=== PATIENT | male | born 1985 | race Caucasian/White ===

== ENCOUNTER 2017-02-22 01:10 | Emergency (ER) | payer SELFPAY ==
--- NOTE | 2017-02-22 02:39 | C.PDOC ---
Time Seen by Provider: 02/22/17 01:34 Chief Complaint (Nursing): Back Pain Past Medical History Vital Signs: Last Vital Signs Temp 98.3 F 02/22/17 01:21 Pulse 95 H 02/22/17 01:21 Resp 18 02/22/17 01:21 BP 160/102 H 02/22/17 01:21 Pulse Ox 96 02/22/17 01:21 - Social History Hx Alcohol Use: No Hx Substance Use: No - Immunization History Hx Tetanus Toxoid Vaccination: No Hx Influenza Vaccination: No Hx Pneumococcal Vaccination: No ED Course And Treatment ECG: Interpreted By Me, Viewed By Me ECG Rhythm: Sinus Rhythm (69), Nonspecific Changes O2 Sat by Pulse Oximetry: 96 Pulse Ox Interpretation: Normal
[2017-02-22 02:54] LABS: BASO # 0.1 K/uL (0.0-0.2); BASO % 0.8 % (0.0-2.0); EOS # 0.3 K/uL (0.0-0.7); EOS % 4.3 % (0.0-4.0); HEMATOCRIT 46.2 % (35.0-51.0); LYMPH # 2.4 K/uL (1.0-4.3); LYMPH % 32.2 % (20.0-40.0); MEAN CELL VOLUME 79.3 fL (80.0-94.0); MEAN CORPUSCULAR HEMOGLOBIN 26.5 pg (27.0-31.0); MEAN CORPUSCULAR HGB CONC 33.5 g/dL (33.0-37.0); MEAN PLATELET VOLUME 8.9 fL (7.2-11.7); MONO # 0.5 K/uL (0.0-0.8); MONO % 7.2 % (0.0-10.0); RED CELL DISTRIBUTION WIDTH 14.4 % (11.5-14.5); WHITE BLOOD COUNT 7.5 K/uL (4.8-10.8)
[2017-02-22 02:59] LABS: CHLORIDE 99 mmol/L (98-107); SODIUM 141 mmol/L (132-148)
[2017-02-22 03:01] LABS: GFR AFRICAN-AMERICAN > 60
[2017-02-22 03:02] LABS: ALB/GLOB RATIO 1.4 (1.0-2.1); ALKALINE PHOSPHATASE 72 U/L (38-126); ALT/SGPT 20 U/L (21-72); AST/SGOT 26 U/L (17-59); BILIRUBIN,TOTAL 0.8 mg/dL (0.2-1.3); BLOOD UREA NITROGEN 9 mg/dL (9-20); CARBON DIOXIDE 34 mmol/L (22-30); GLUCOSE,RANDOM 81 mg/dL (75-110); TOTAL PROTEIN 7.8 g/dL (6.3-8.3)
[2017-02-22 03:03] LABS: ALCOHOL SERUM < 10 mg/dl (0-10); CALCIUM 9.4 mg/dl (8.6-10.4)
[2017-02-22 03:15] LABS: INR 1.2; PARTIAL THROMBOPLASTIN TIME 34 SECONDS (21-34)
[2017-02-22 03:23] LABS: RBC URINE < 1 /hpf (0-3); URINE BILIRUBIN NEGATIVE (NEGATIVE); URINE BLOOD NEGATIVE (NEGATIVE); URINE COLOR Yellow (YELLOW); URINE GLUCOSE (UA) NORMAL (Normal); URINE KETONE NEGATIVE (NEGATIVE); URINE LEUKOCYTE ESTERASE NEG Leu/uL (Negative); URINE PROTEIN NEGATIVE (NEGATIVE); URINE UROBILINOGEN NORMAL mg/dL (0.2-1.0); WBC URINE < 1 /hpf (0-5)
[2017-02-22 04:46] VITALS: BP 122/75; PULSE 60; RESP 20; TEMP 98.2; O2SAT 99
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
--- NOTE | 2017-02-28 16:44 | CARD ---
APPROVED REPORT EKG Measurement Heart [id number] [place] [id number] <Conclusion> Normal sinus rhythm with sinus arrhythmia Rsr' V1 - V2 Borderline ECG
== END 2017-02-22 05:12 | disposition home or self-care (01) ==
LOC: C.ER 01:10
DX: S39.012A Strain of muscle, fascia and tendon of lower back, initial encounter (principal); S23.3XXA Sprain of ligaments of thoracic spine, initial encounter; V89.2XXA Person injured in unspecified motor-vehicle accident, traffic, initial encounter
CPT/HCPCS: 70450; 71020; 72100; 80053; 81001; 82550; 82553; 84484; 85025; 85378; 85610; 85730; 99284; G0480

== ENCOUNTER 2018-07-29 22:10 | Emergency (ER) | payer MEDICAID, OTHER ==
[2018-07-29 22:24] VITALS: BP 135/87; PULSE 80; RESP 20; TEMP 98.3; O2SAT 97
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
--- NOTE | 2018-07-30 21:39 | CARD ---
APPROVED REPORT Date of service: 07/29/2018 EKG Measurement Heart [id number] <Conclusion> Normal sinus rhythm Normal ECG
== END 2018-07-30 | disposition home or self-care (01) ==
LOC: C.ER 22:10 → SUPCPDRO 22:10 → C.ER 07-30
DX: S29.9XXA Unspecified injury of thorax, initial encounter (principal); Y04.0XXA Assault by unarmed brawl or fight, initial encounter

== ENCOUNTER 2018-08-10 17:27 | Inpatient (IN) | payer OTHER ==
--- NOTE | 2018-08-10 18:03 | C.PDOC ---
History Of Present Illness 33yo male, comes to ER for detox - he states he last used xanax and oxycontin last night. He denies any withdrawal symptoms at this time. Patient denies any suicidal or homicidal ideation; he denies any hallucinations as well. No medical complaints. <PattersonFrannie Zachery - Last Filed: 08/10/18 18:53> History Per: Patient History/Exam Limitations: no limitations Associated Symptoms: denies: Suicidal Thoughts, Suicidal Plan <LeonardoFrannie Zachery - Last Filed: 08/10/18 18:53> <WilmaJosefinalatosha - Last Filed: 08/10/18 20:48> Time Seen by Provider: 08/10/18 17:42 Chief Complaint (Nursing): Substance Abuse Past Medical History Reviewed: Historical Data, Nursing Documentation, Vital Signs Vital Signs: Last Vital Signs Temp 97.7 F 08/10/18 17:33 Pulse 93 H 08/10/18 17:33 Resp 18 08/10/18 17:33 BP 129/87 08/10/18 17:33 Pulse Ox 99 08/10/18 17:33 - Medical History PMH: HTN Surgical History: No Surg Hx Family History: States: No Known Family Hx - Social History Hx Alcohol Use: No Hx Substance Use: Yes - Immunization History Hx Tetanus Toxoid Vaccination: No Hx Influenza Vaccination: No Hx Pneumococcal Vaccination: No <PattersonFrannie Zachery - Last Filed: 08/10/18 18:53> Vital Signs: Last Vital Signs Temp 97.7 F 08/10/18 17:33 Pulse 93 H 08/10/18 17:33 Resp 18 08/10/18 17:33 BP 129/87 08/10/18 17:33 Pulse Ox 99 08/10/18 19:01 <WilmaJosefinalatosha - Last Filed: 08/10/18 20:48> Review Of Systems Except As Marked, All Systems Reviewed And Found Negative. Psych: Negative for: Suicidal ideation, Withdrawal <LeonardoFrannie L - Last Filed: 08/10/18 18:53> Physical Exam - Physical Exam Appears: Non-toxic, No Acute Distress Skin: Normal Color Head: Atraumatic, Normacephalic Eye(s): bilateral: Normal Inspection Chest: Symmetrical Cardiovascular: Rhythm Regular Respiratory: Normal Breath Sounds Extremity: Normal ROM Neurological/Psych: Oriented x3 <LeonardoFrannie - Last Filed: 08/10/18 18:53> ED Course And Treatment - Laboratory Results Result Diagrams: 08/10/18 18:07 08/10/18 18:07 O2 Sat by Pulse Oximetry: 99 (RA) Pulse Ox Interpretation: Normal <LeonardoDarekFrannie Zachery - Last Filed: 08/10/18 18:53> - Laboratory Results Result Diagrams: 08/10/18 18:07 08/10/18 18:07 <Abhinav Dillon - Last Filed: 08/10/18 20:48> Medical Decision Making Medical Decision Making: Impression: Substance abuse Plan: -- Labs -- Urinalysis -- Urine drug screen -- Crisis evaluation [address] Patient signed out to Dr. Dillon pending drug screen, crisis evaluation. <Frannie Patterson - Last Filed: 08/10/18 18:53> Disposition - Disposition Disposition Time: 19:00 - POA Present On Arrival: None <Frannie Patterson - Last Filed: 08/10/18 18:53> Discussed With DrMarily: Deborah Rodriguez Comment: accepted the pt on her service and took over the care at 8:47 PM Doctor Will See Patient In The: Hospital Counseled Patient/Family Regarding: Studies Performed - POA Present On Arrival: Poor Glycemic Control <Abhinav Dillon - Last Filed: 08/10/18 20:48> - Disposition Disposition: HOSPITALIZED Condition: FAIR - Clinical Impression Clinical Impression: Drug abuse, Drug dependence - PA / FACILITIES ASSISTANT / Resident Statement MD/DO has reviewed & agrees with the documentation as recorded. - Scribe Statement The provider has reviewed the documentation as recorded by the Jenny Vazquez Provider Attestation: All medical record entries made by the Jenny were at my direction and personally dictated by me. I have reviewed the chart and agree that the record a ccurately reflects my personal performance of the history, physical exam, medical decision making, and the department course for this patient. I have also personally directed, reviewed, and agree with the discharge instructions and disposition. <Frannie Patterson - Last Filed: 08/10/18 18:53> Physician Patient Turnover Patient Signed Over To: Abhinav Dillon Handoff Comments: Pending urine drug test, crisis eval and dispo <PattersonFrannie concepcion - Last Filed: 08/10/18 18:53> Decision To Admit <PattersonFrannie concepcion Zachery - Last Filed: 08/10/18 18:53> - Pt Status Changed To: Hospital Disposition Of: Inpatient - Admit Certification Admit to Inpatient:: After my assessment, the patient will require hospitalization for at least two midnights. This is because of the severity of symptoms shown, intensity of services needed, and/or the medical risk in this patient being treated as an outpatient. - InPatient: Physician Admission Certification: I certify that this patient requires 2 or more midnights of care for the following reason:: After my assessment, the patient will require hospitalization for at least two midnights. This is because of the severity of symptoms shown, intensity of services needed, and/or the medical risk in this patient being treated as an outpatient. - . Bed Request Type: Detox Admitting Physician: Deborah Rodriguez <Abhinav Dillon - Last Filed: 08/10/18 20:48> - . Patient Diagnosis: Drug abuse, Drug dependence
[2018-08-10 18:11] LABS: BASO # 0.1 K/uL (0.0-0.2); BASO % 0.9 % (0.0-2.0); EOS # 0.4 K/uL (0.0-0.7); HEMOGLOBIN 14.2 g/dL (12.0-18.0); LYMPH # 2.2 K/uL (1.0-4.3); LYMPH % 29.5 % (20.0-40.0); MEAN CELL VOLUME 78.9 fL (80.0-94.0); MEAN CORPUSCULAR HEMOGLOBIN 26.8 pg (27.0-31.0); MEAN CORPUSCULAR HGB CONC 33.9 g/dL (33.0-37.0); MEAN PLATELET VOLUME 8.7 fL (7.2-11.7); MONO # 0.5 K/uL (0.0-0.8); MONO % 6.4 % (0.0-10.0); NEUT # 4.4 K/uL (1.8-7.0); NEUT % 58.2 % (50.0-75.0); RBC 5.32 Mil/uL (4.40-5.90); WHITE BLOOD COUNT 7.6 K/uL (4.8-10.8)
[2018-08-10 18:37] LABS: ALB/GLOB RATIO 1.6 (1.0-2.1); ALBUMIN 4.3 g/dL (3.5-5.0); ALT/SGPT 17 U/L (21-72); AST/SGOT 27 U/L (17-59); BLOOD UREA NITROGEN 9 mg/dL (9-20); CALCIUM 9.4 mg/dl (8.6-10.4); GFR NON-AFRICAN AMERICAN > 60
[2018-08-10 19:01] LABS: URINE BILIRUBIN NEGATIVE (NEGATIVE); URINE BLOOD NEGATIVE (NEGATIVE); URINE CLARITY Clear (Clear); URINE COLOR Yellow (YELLOW); URINE GLUCOSE (UA) NORMAL (Normal); URINE LEUKOCYTE ESTERASE NEG Leu/uL (Negative); URINE PROTEIN NEGATIVE (NEGATIVE); URINE UROBILINOGEN NORMAL mg/dL (0.2-1.0)
[2018-08-10 19:25] LABS: BARBITURATES, UR NEGATIVE (NEGATIVE); PHENCYCLIDINE, UR NEGATIVE (NEGATIVE)
[2018-08-10 19:44] LABS: BENZODIAZEPINES, UR POSITIVE (NEGATIVE); OPIATES, UR POSITIVE (NEGATIVE)
[2018-08-10] MEDS ORDERED: Magnesium Hydroxide Susp 30 ml UD PO PRN (20:32)
[2018-08-10] MEDS ORDERED: Aluminum Hydroxide/Magnesium Hydroxide Susp (30 mL) PO PRN (20:32)
--- NOTE | 2018-08-10 21:07 | PCM.BM ---
<Thiago Lim - Last Filed: 08/10/18 21:06> Treatment Plan Problems - Problems identified on initial assessmt potential for opiate withdrawal Date Initiated: 08/10/18 Time Initiated: 21:06 Status: Active Treatment assets and liabiliti Patient Assests: adapts well, cognitively intact Patient Liabilities: substance abuse - Milieu Protocol Maintain good personal hygiene: daily Encourage regular showers, daily Remind patient to perform daily oral care, daily Assist patient to perform ADL's Conduct patient checks and document Observation sheet: Q15 minutes Maintain personal safety: every shift Educate patient to report safety concerns to staff, every shift Monitor environment for contraband/sharps Medication safety: Monitor for expected outcome, potential side effects: every shift, Assess barriers to learning: every shift, Assess readiness for medication education: every shift <Claudia Elizondo - Last Filed: 08/11/18 14:21> Family Contact Family involvement: Famliy/SO not involved - Goals for Treatment Patient goals for treatment: Complete detox and relocate to [place]. Discharge/Continuing Care - Education Needs Education Needs: Patient Medication, Patient Diagnosis/Disease Process, Patient Coping Skills, Patient Anger Management skills, Patient Placement options, Patient Community resources - Discharge Discharge Criteria: No longer exhibiting s/s of withdrawal, Reduction of target symptoms Discharge to:: Home, With Family - Treatment Team Participation Patient/Family/SO Statement: 08/11/18 14:22 "I wanna go back to [place] where my family is..." Discussed with Family/SO: No Was Patient/Family/SO present at Treatment Team Meeting: Yes <Kelsy Phelps - Last Filed: 08/13/18 12:38> - Diagnosis (1) Opioid use disorder, severe, dependence Status: Acute Interventions: 08/13/18 12:38 * Assess 7x/week regarding severity of withdrawal * Educate regarding risks, benefits, side effects and alternatives of medications * Use Motivational Interviewing for abstinence * Use CBT for relapse prevention * Medication management for withdrawal symptoms * Encourage medication assisted treatment *
--- NOTE | 2018-08-11 11:40 | PCM.PSYCH ---
Initial Psychiatric Evaluation - Initial Psychiatric Evaluation Type of Admission: Voluntary Legal Status: Capacity Chief Complaint (in patient's own words): "I've gotto stop this" History of Present Illness and Precipitating Events: Patient seen, chart reviewed, case discussed HPI: Patient is a 33-year-old unemployed, , Middle-Eastern male who currently lives at home with his and 4-year-old child. The patient states that he has been using opiates for a long time, but was able to quit last year before relapsing this past February. The patient states that he takes fifteen to twenty 30 mg oxycodone pills and 10-15 of the 2 mg tablets of Xanax per day. The patient was unsure whether his last use was yesterday or the day before. The patient denies cocaine, marijuana, and alcohol use. Patient admits to smoking 2 packs per day for 15 years. The patient has been to detox once in July 2017 but has never been to rehab. 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 He denies having seizures but he had mild confusion and withdrawal sxs from xanax. He minimizes his use and says he recently escalated to such a high dose. The patient denies any family history of drug use. The patient plans on moving back to [place] when he leaves from the hospital. Past Psych History: denies Past Medical History: 7 sinus surgeries Family Psych History: denies Current Medications: Active Medications Generic Name Dose Route Start Last Admin Trade Name Freq PRN Reason Stop Dose Admin Al Hydrox/Mg Hydrox/Simethicone 30 ml 08/10/18 20:32 Maalox 30 Ml PO TID PRN Indigestion / Heartburn Chlordiazepoxide 25 mg 08/11/18 08:10 08/11/18 08:26 Librium PO 25 mg Q4 PRN Administration benzo withdrawal symptoms Chlordiazepoxide 50 mg 08/11/18 12:00 Librium PO 08/16/18 11:59 Q6 VISH Taper Clonidine HCl 0.1 mg 08/10/18 20:32 08/11/18 08:26 Catapres PO 0.1 mg Q4 PRN Administration COWS Score More or Equal to 5 Hydroxyzine HCl 25 mg 08/10/18 20:36 Atarax PO Q6 PRN Anxiety Ibuprofen 600 mg 08/10/18 20:41 Motrin Tab PO Q6 PRN Pain, moderate (4-7) Loperamide HCl 2 mg 08/10/18 20:32 Imodium PO Q8 PRN Diarrhea Magnesium Hydroxide 30 ml 08/10/18 20:32 Milk Of Magnesia PO 08/13/18 10:01 BID PRN Constipation Methadone HCl 25 mg 08/11/18 10:00 08/11/18 10:18 Methadone PO 08/16/18 09:59 25 mg Q24H VISH Administration Taper Multivitamins 1 tab 08/11/18 22:00 Hexavitamin PO HS VISH Nicotine 1 patch 08/11/18 10:00 08/11/18 10:17 Nicoderm Cq TD 1 patch DAILY VISH Administration Ondansetron HCl 4 mg 08/10/18 20:32 Zofran Tab PO Q8 PRN Nausea/Vomiting Trazodone HCl 100 mg 08/10/18 20:34 Desyrel PO HS PRN Sleep Trazodone HCl 50 mg 08/11/18 22:00 Desyrel PO HS PRN Insomnia Past Psychiatric History - Past Psychiatric History Previous Treatment History: None Pertinent Medical Hx (Current Medical&Sleep Prob, Allergies): Allergies Allergy/AdvReac Type Severity Reaction Status Date / Time No Known Allergies Allergy Verified 07/29/18 22:14 No Known Home Med 07/29/18 Review of Systems - Neurological Neurological: UNREMARKABLE - Psychiatric Psychiatric: Abnormal Sleep Pattern, Anhedonia, Anxiety, Difficulty Concentrating. absent: Hallucinations, Homicidal Ideation, Suicidal Ideation Mental Status Examination - Personal Presentation Personal Presentation: Looks stated age - Affect Affect: Constricted - Motor Activity Motor Activity: Calm - Reliability in Providing Information Reliability in Providing Information: Good - Speech Speech: Organized - Mood Mood: Depressed, Anxious - Formal Thought Process Formal Thought Process: No Impairment - Cognitive Functions Orientation: Person, Place, Situation, Time Sensorium: Alert Attention/Concentration: Attentive Estimate of Intelligence: Average Judgement: Intact, as evidence by: Insight regarding need for hospitalization Memory: Recent intact, as evidence by: Ability to recall events of the day, Remote intact, as evidenced by: Abilit to recall sig. 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 diet, exercise, meditation Smoking cessation with HI Nicotine patch if needed 33 min Projected ELOS: 5 days Prognosis: good w treatment - Smoking Cessation Smoking Cessation Initiated: Yes
[2018-08-11] MEDS: Multiple Vitamins Tab PO SCH (21:07)
[2018-08-12] MEDS: Multiple Vitamins Tab PO SCH (21:15)
[2018-08-13] MEDS: Multiple Vitamins Tab PO SCH (09:39)
--- NOTE | 2018-08-13 12:38 | PCM.PYCHPN ---
Psychiatric Progress Note - Psychiatric Progress Note Patient seen today, length of contact: 16 min Patient Chief Complaint: "I'm not well" Problems Identified/Issues Discussed: The pt is seen, chart reviewed, case discussed with staff. The pt is compliant with medications and reports no side-effects. Symptoms are improving but needs more time to stabilize. Pt attends groups and activities. Support given, psycho-education provided. After care discussed. Medication Change: Yes (detox changes daily) Medical Record Reviewed: Yes Mental Status Examination - Cognitive Function Orientation: Person, Place, Situation, Time Memory: Intact Attention: WNL Concentration: WNL Association: WNL Fund of Knowledge: WN - Mood Mood: Depressed, Anxious - Affect Affect: Constricted - Speech Speech: Appropriate - Formal Thought Process Formal Thought Process: No Impairment - Suicidal Ideation Suicidal Ideation: No - Homicidal Ideation Homicidal Ideation: No Goal/Treatment Plan - Goal/Treatment Plan Need for Continued Stay: Discharge may exacerbated symptoms, Severe functional impairment Progress Toward Problem(s) and Goals/Treatment Plan: Taper with Methadone and librium Gabapentin for augmentation As needed medication All risks, benefits and alternatives of the meds discussed and the patient agreed and understood Attend groups and activities Supportive therapy and psychoeducation SD for abstinence CBT for relapse prevention Encourage MAT Refer to rehab or IOP, and self-help groups Teach healthy lifestyle methods, i.e. diet, exercise, meditation Smoking cessation with SD Nicotine patch if needed Estimated Date of D/C: 08/15/18
--- NOTE | 2018-08-13 15:48 | PCM.PYCHPN ---
Psychiatric Progress Note - Psychiatric Progress Note Patient seen today, length of contact: 16 min Medication Change: No Medical Record Reviewed: Yes Mental Status Examination - Cognitive Function Orientation: Person, Place, Situation, Time - Mood Mood: Depressed, Anxious - Affect Affect: Constricted - Formal Thought Process Formal Thought Process: No Impairment - Homicidal Ideation Homicidal Ideation: No
[2018-08-14] MEDS: Multiple Vitamins Tab PO SCH (09:34)
--- NOTE | 2018-08-14 11:55 | PCM.PYCHPN ---
Psychiatric Progress Note - Psychiatric Progress Note Patient seen today, length of contact: 16 min Patient Chief Complaint: "I'm still withdrawing" Problems Identified/Issues Discussed: The pt is seen, chart reviewed, case discussed with staff. Support and psychoeducation given, CBT and NJ used briefly No new symptoms reported, improving slowly and needs more time No SEs from medications, risks discussed. After care discussed Medication Change: Yes (detox changes daily) Medical Record Reviewed: Yes Mental Status Examination - Cognitive Function Orientation: Person, Place, Situation, Time Memory: Intact Attention: WNL Concentration: WNL Association: WNL Fund of Knowledge: WNL - Mood Mood: Depressed, Anxious - Affect Affect: Constricted - Speech Speech: Appropriate - Formal Thought Process Formal Thought Process: No Impairment - Suicidal Ideation Suicidal Ideation: No - Homicidal Ideation Homicidal Ideation: No Goal/Treatment Plan - Goal/Treatment Plan Need for Continued Stay: Discharge may exacerbated symptoms, Severe functional impairment Progress Toward Problem(s) and Goals/Treatment Plan: Taper with Methadone and librium Gabapentin for augmentation As needed medication All risks, benefits and alternatives of the meds discussed and the patient agreed and understood Attend groups and activities Supportive therapy and psychoeducation NJ for abstinence CBT for relapse prevention Encourage MAT Refer to rehab or IOP, and self-help groups Teach healthy lifestyle methods, i.e. diet, exercise, meditation Smoking cessation with NJ Nicotine patch if needed Estimated Date of D/C: 08/15/18
[2018-08-15 09:01] VITALS: RESP 20; TEMP 97.9; O2SAT 100
[2018-08-15] MEDS: Multiple Vitamins Tab PO SCH (09:37)
[2018-08-15 11:58] VITALS: BP 118/87; PULSE 86
--- NOTE | 2018-08-15 19:17 | PCM.PYCHDC ---
Mental Status Examination - Mental Status Examination Orientation: Person, Place, Situation, Time Discharge Summary - Discharge Note Consultations:: List each consultation separately and include: 1. Reason for request. 2. Findings. 3. Follow-up Summary of Hospital Course include:: 1. Description of specific treatment plan utilized for patients during their course of treatmen. 2. Summarize the time- course for resolution of acute symptoms and/or regressed behaviors. 3. Describe issues identified and worked on during hospitalization. 4. Describe medication utilized. 5. Describe medical problems identified and treated. 6. Reassessment of suicide risk - Final Diagnosis (DSM 5) Condition upon Discharge: FAIR Disposition: HOME/ ROUTINE
== END 2018-08-15 12:04 | disposition home or self-care (01) | DRG 745 ==
LOC: C.ER 17:27 → C.7D 20:46
PROVIDERS: ADMIT Psychiatry & Neurology Psychiatry; ATTEND Psychiatry & Neurology Psychiatry
PROC: HZ2ZZZZ Detoxification Services for Substance Abuse Treatment (ICD-10-PCS; principal; 2018-08-10)
PROC: HZ80ZZZ Medication Management for Substance Abuse Treatment, Nicotine Replacement (ICD-10-PCS; 2018-08-10)
PROC: HZ46ZZZ Group Counseling for Substance Abuse Treatment, Psychoeducation (ICD-10-PCS; 2018-08-10)
PROC: HZ59ZZZ Individual Psychotherapy for Substance Abuse Treatment, Supportive (ICD-10-PCS; 2018-08-10)
DX: F11.23 Opioid dependence with withdrawal (principal); F13.239 Sedative, hypnotic or anxiolytic dependence with withdrawal, unspecified; F17.210 Nicotine dependence, cigarettes, uncomplicated; I10 Essential (primary) hypertension

== ENCOUNTER 2018-09-09 22:21 | Inpatient (IN) | payer OTHER ==
[2018-09-09 23:40] LABS: BASO # 0.1 K/uL (0.0-0.2); BASO % 1.1 % (0.0-2.0); EOS # 0.5 K/uL (0.0-0.7); HEMOGLOBIN 14.3 g/dL (12.0-18.0); LYMPH # 2.5 K/uL (1.0-4.3); LYMPH % 30.1 % (20.0-40.0); MEAN CORPUSCULAR HEMOGLOBIN 27.3 pg (27.0-31.0); MEAN CORPUSCULAR HGB CONC 33.7 g/dL (33.0-37.0); MEAN PLATELET VOLUME 9.1 fL (7.2-11.7); MONO # 0.6 K/uL (0.0-0.8); MONO % 7.4 % (0.0-10.0); NEUT # 4.7 K/uL (1.8-7.0); NEUT % 55.4 % (50.0-75.0); RBC 5.23 Mil/uL (4.40-5.90); WHITE BLOOD COUNT 8.4 K/uL (4.8-10.8)
[2018-09-09 23:42] LABS: SQUAMOUS EPITHIAL < 1 /hpf (0-5); URINE BILIRUBIN NEGATIVE (NEGATIVE); URINE BLOOD NEGATIVE (NEGATIVE); URINE CLARITY Clear (Clear); URINE COLOR Yellow (YELLOW); URINE GLUCOSE (UA) NORMAL (Normal); URINE LEUKOCYTE ESTERASE NEG Leu/uL (Negative); URINE PROTEIN NEGATIVE (NEGATIVE)
[2018-09-09 23:44] LABS: MEAN CELL VOLUME 80.9 fL (80.0-94.0)
[2018-09-10 00:02] LABS: ALB/GLOB RATIO 1.4 (1.0-2.1); ALBUMIN 4.3 g/dL (3.5-5.0); ALT/SGPT 26 U/L (21-72); AST/SGOT 39 U/L (17-59); BLOOD UREA NITROGEN 8 mg/dL (9-20); CALCIUM 9.2 mg/dl (8.6-10.4); GFR NON-AFRICAN AMERICAN > 60
[2018-09-10 00:09] LABS: BARBITURATES, UR NEGATIVE (NEGATIVE); PHENCYCLIDINE, UR NEGATIVE (NEGATIVE)
[2018-09-10 00:32] LABS: BENZODIAZEPINES, UR POSITIVE (NEGATIVE); OPIATES, UR POSITIVE (NEGATIVE)
--- NOTE | 2018-09-10 00:40 | C.PDOC ---
History Of Present Illness 33 year old male presents to the ER requesting detox from xanax and oxycodon. Denies vomiting, diarrhea, fever, chills, chest pain, SOB, or acute injury. Time Seen by Provider: 09/09/18 22:55 Chief Complaint (Nursing): Substance Abuse History Per: Patient History/Exam Limitations: no limitations Onset/Duration Of Symptoms: Hrs Current Symptoms Are (Timing): Still Present Suicide/Self Injury Attempted (Context): None Involuntary Hold By: None Recent travel outside of the [place]: No Past Medical History Reviewed: Historical Data, Nursing Documentation, Vital Signs Vital Signs: Last Vital Signs Temp 98.2 F 09/09/18 22:35 Pulse 96 H 09/09/18 22:35 Resp 18 09/09/18 22:35 BP 141/88 09/09/18 22:35 Pulse Ox 98 09/09/18 22:35 - Medical History PMH: HTN Denies: Diabetes, Hepatitis, HIV, Seizures, Sexually Transmitted Disease - [facility] Procedures DETOXIFICATION SERVICES FOR SUBSTANCE ABUSE TREATMENT (08/10/18) GROUP BUSINESS CONTINUITY DIRECTOR FOR SUBSTANCE ABUSE TREATMENT, PSYCHOEDUCATION (08/10/18) INDIV PSYCHOTHERAPY FOR SUBSTANCE ABUSE TREATMENT, SUPPORT (08/10/18) MEDS MGMT FOR SUBSTANCE ABUSE TREATMENT, NICOTINE REPLACE (08/10/18) Family History: States: Unknown Family Hx - Social History Hx Alcohol Use: No Hx Substance Use: Yes - Immunization History Hx Tetanus Toxoid Vaccination: No Hx Influenza Vaccination: No Hx Pneumococcal Vaccination: No Review Of Systems Constitutional: Negative for: Fever, Chills, Weakness Eyes: Negative for: Redness, Other (Scleral icterus) ENT: Negative for: Mouth Swelling Cardiovascular: Negative for: Chest Pain Respiratory: Negative for: Cough, Shortness of Breath Gastrointestinal: Negative for: Nausea, Vomiting, Diarrhea Genitourinary: Negative for: Dysuria, Hematuria Musculoskeletal: Negative for: Back Pain Skin: Negative for: Rash Neurological: Negative for: Weakness, Numbness, Dizziness Physical Exam - Physical Exam Appears: Well, Non-toxic, No Acute Distress, Other (No sign of trauma) Skin: Normal Color, Warm, No Rash Head: Atraumatic, Normacephalic Eye(s): bilateral: Normal Inspection (No scleral icterus), PERRL, EOMI Ear(s): Bilateral: Normal (No drainage) Nose: Normal Oral Mucosa: Moist Throat: Normal (No swelling or injection), No Exudate, Other (Airway patent) Neck: Normal ROM, Supple Chest: Symmetrical Cardiovascular: Rhythm Regular Respiratory: No Accessory Muscle Use, Other (Normal inspiratory effort) Gastrointestinal/Abdominal: Soft, No Distention Back: Other (Ambulating with steady upright gait) Extremity: Bilateral: Atraumatic, Normal ROM Pulses: Left Radial: Normal (2+), Right Radial: Normal (2+) Neurological/Psych: Oriented x3, Normal Cranial Nerves (Grossly intact) ED Course And Treatment - Laboratory Results Result Diagrams: 09/09/18 23:34 09/09/18 23:34 O2 Sat by Pulse Oximetry: 98 (Room air) Pulse Ox Interpretation: Normal Medical Decision Making Medical Decision Making: Blood work and urinalysis ordered. Patient does not appear to be acutely intoxicated at this time, denies suicidal ideation and homicidal ideation, medically cleared for detox admission. Disposition - Disposition Disposition: HOSPITALIZED Disposition Time: 03:08 Condition: STABLE Forms: [employer] [facility] ([place]) - Clinical Impression Clinical Impression: Opioid use disorder, severe, dependence - PA / MICA MACHINE OPERATOR / Resident Statement MD/DO has reviewed & agrees with the documentation as recorded. - Scribe Statement The provider has reviewed the documentation as recorded by the Scribe Cirilo Minor All medical record entries made by the Karlibandra were at my direction and personally dictated by me. I have reviewed the chart and agree that the record accurately reflects my personal performance of the history, physical exam, medical decision making, and the department course for this patient. I have also personally directed, reviewed, and agree with the discharge instructions and disposition.
--- NOTE | 2018-09-10 03:46 | PCM.BM ---
<Obey Antoine - Last Filed: 09/10/18 03:44> Treatment Plan Problems - Problems identified on initial assessmt potential for opiates withdrawal Date Initiated: 09/10/18 Time Initiated: 03:45 Assessment reference: NA Status: Active Treatment assets and liabiliti Patient Assests: adapts well, cooperative, self-reliant, ADL independent, cognitively intact Patient Liabilities: substance abuse - Milieu Protocol Maintain good personal hygiene: daily Encourage regular showers, daily Remind patient to perform daily oral care, daily Assist patient to perform ADL's Maintain personal safety: every shift Educate patient to report safety concerns to staff, every shift Monitor environment for contraband/sharps Medication safety: Monitor for expected outcome, potential side effects: every shift, Assess barriers to learning: every shift, Assess readiness for medication education: every shift <Kelsy Phelps - Last Filed: 09/10/18 13:14> - Diagnosis (1) Opioid use disorder, severe, dependence Status: Acute Interventions: 09/10/18 13:15 * Assess 7x/week regarding severity of withdrawal * Educate regarding risks, benefits, side effects and alternatives of medications * Use Motivational Interviewing for abstinence * Use CBT for relapse prevention * Medication management for withdrawal symptoms * Encourage medication assisted treatment * (2) Sedative, hypnotic or anxiolytic use disorder, severe, dependence Status: Acute Interventions: 09/10/18 13:15 * Assess 7x/week regarding severity of withdrawal * Educate regarding risks, benefits, side effects and alternatives of medications * Use Motivational Interviewing for abstinence * Use CBT for relapse prevention * Medication management for withdrawal symptoms * Encourage medication assisted treatment * <Claudia Elizondo - Last Filed: 09/10/18 13:39> Family Contact Family involvement: Famliy/SO not involved - Goals for Treatment Patient goals for treatment: Complete detox and plan relocation to [facility]. Discharge/Continuing Care - Education Needs Education Needs: Patient Medication, Patient Diagnosis/Disease Process, Patient Coping Skills, Patient Anger Management skills, Patient Placement options, Patient Community resources - Discharge Discharge Criteria: No longer exhibiting s/s of withdrawal, Reduction of target symptoms Discharge to:: Home, With Family - Treatment Team Participation Patient/Family/SO Statement: 09/10/18 13:38 "I'm going to fly to [place] after this so I can see my mother..." Discussed with Family/SO: No Was Patient/Family/SO present at Treatment Team Meeting: Yes
--- NOTE | 2018-09-10 12:11 | PCM.PSYCH ---
Initial Psychiatric Evaluation - Initial Psychiatric Evaluation Type of Admission: Voluntary Legal Status: Capacity Chief Complaint (in patient's own words): "I need detox before I go to [facility]" History of Present Illness and Precipitating Events: Patient seen, chart reviewed, case discussed He is known from a previous admission Patient is a 33-year-old unemployed, , Middle-Eastern male who currently lives at home with his and 4-year-old child. The patient states that he has been using opiates for a long time, but was able to quit last year before relapsing this past February. Then in June he was detoxed again here. The patient states that he takes ten of the 30 mg oxycodone pills and 7-8 of the 2 mg tablets of Xanax per day. The patient denies cocaine, marijuana, and alcohol use. Patient admits to smoking 2 packs per day for 15 years. The patient has been to detox once in July 2017 and June 2018, but has never been to rehab. 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 He denies having seizures but he had confusion and withdrawal sxs from xanax. He minimizes his use again and says he recently escalated to such a high dose. tthe patient claims that her mother is in a hospital in [facility] in [facility] and likely dying and they will allegedly pull the plug on her after he visits her. He claims they will wait for him to come which will be next week. The patient denies any family history of drug use. The patient plans on moving back to [place] when he leaves from the hospital. Past Psych History: denies Past Medical History: 7 sinus surgeries Family Psych History: denies Current Medications: Active Medications Generic Name Dose Route Start Last Admin Trade Name Freq PRN Reason Stop Dose Admin Clonidine HCl 0.1 mg 09/10/18 03:23 09/10/18 03:55 Catapres PO 0.1 mg Q6 PRN Administration s/s of withdrawal cows=5 Dicyclomine HCl 10 mg 09/10/18 03:24 Bentyl PO Q6 PRN Muscle spasm Hydroxyzine HCl 25 mg 09/10/18 03:23 09/10/18 03:55 Atarax PO 25 mg Q6 PRN Administration Anxiety Ibuprofen 600 mg 09/10/18 03:22 12/20/18 03:55 Motrin Tab PO 600 mg Q6 PRN Administration Pain, moderate (4-7) Ondansetron HCl 4 mg 09/10/18 03:21 Zofran Tab PO Q6 PRN Nausea/Vomiting Past Psychiatric History - Past Psychiatric History Previous Treatment History: None Pertinent Medical Hx (Current Medical&Sleep Prob, Allergies): Allergies Allergy/AdvReac Type Severity Reaction Status Date / Time No Known Allergies Allergy Verified 07/29/18 22:14 No Known Home Med 07/29/18 Review of Systems - Psychiatric Psychiatric: Abnormal Sleep Pattern, Anhedonia, Anxiety, Depression, Difficulty Concentrating. absent: Hallucinations, Homicidal Ideation, Irritability, Suicidal Ideation Mental Status Examination - Personal Presentation Personal Presentation: Looks stated age - Affect Affect: Constricted - Motor Activity Motor Activity: Calm - Reliability in Providing Information Reliability in Providing Information: Good - Speech Speech: Organized - Mood Mood: Depressed, Anxious - Formal Thought Process Formal Thought Process: No Impairment - Cognitive Functions Orientation: Person, Place, Situation, Time Sensorium: Alert Attention/Concentration: Easily distracted Estimate of Intelligence: Average Judgement: Intact, as evidence by: Insight regarding need for hospitalization Memory: Recent intact, as evidence by: Ability to recall events of the day, Remote intact, as evidenced by: Ability to recall historical events - Risk Risk: Withdrawal, Diminished functioning - Strength & Assets Inventory Strength & Assets Inventory: Cooperative - Limitations Limitations: Other DSM 5 DX - DSM 5 DSM 5 Diagnosis: Opioid withdrawal Opioid use d/osevere 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 diet, exercise, meditation Smoking cessation with CA Nicotine patch if needed 34 minutes Projected ELOS: 4 days Prognosis: good with treatment - Smoking Cessation Smoking Cessation Initiated: Yes
[2018-09-11] MEDS ORDERED: Bacitracin 500 Units/gm Oint Foilpak UD TOP PRN (11:39)
--- NOTE | 2018-09-11 12:11 | PCM.PYCHPN ---
Psychiatric Progress Note - Psychiatric Progress Note Patient seen today, length of contact: 16 minutes Patient Chief Complaint: "I am not well yet" Problems Identified/Issues Discussed: The pt is seen, chart reviewed, case discussed with staff. The pt is compliant with medications and reports no side-effects. Symptoms are improving but needs more time to stabilize. Pt attends groups and activities. Support given, psycho-education provided. After care discussed. Medication Change: Yes (detox changes daily) Medical Record Reviewed: Yes Mental Status Examination - Cognitive Function Orientation: Person, Place, Situation, Time Memory: Intact Attention: WNL Concentration: Poor Association: WNL Fund of Knowledge: WNL - Mood Mood: Depressed, Anxious - Affect Affect: Constricted - Speech Speech: Appropriate - Formal Thought Process Formal Thought Process: No Impairment - Suicidal Ideation Suicidal Ideation: No - Homicidal Ideation Homicidal Ideation: No Goal/Treatment Plan - Goal/Treatment Plan Need for Continued Stay: Discharge may exacerbated symptoms, Severe functional impairment Progress Toward Problem(s) and Goals/Treatment Plan: Taper with Methadone and librium Gabapentin for augmentation As needed medication All risks, benefits and alternatives of the meds discussed and the patient agreed and understood Attend groups and activities Supportive therapy and psychoeducation VT for abstinence CBT for relapse prevention Encourage MAT Refer to rehab or IOP, and self-help groups Teach healthy lifestyle methods, i.e. diet, exercise, meditation Smoking cessation with VT Nicotine patch if needed
--- NOTE | 2018-09-12 13:20 | PCM.PYCHPN ---
Psychiatric Progress Note - Psychiatric Progress Note Patient seen today, length of contact: 16 minutes Patient Chief Complaint: "I am not well yet" Problems Identified/Issues Discussed: The pt is seen, chart reviewed, case discussed with staff. The pt is compliant with medications and reports no side-effects. Symptoms are improving but needs more time to stabilize. Pt attends groups and activities. Support given, psycho-education provided. After care discussed. Medication Change: Yes (detox changes daily) Medical Record Reviewed: Yes Mental Status Examination - Cognitive Function Orientation: Person, Place, Situation, Time Memory: Intact Attention: WNL Concentration: Poor Association: WNL Fund of Knowledge: WNL - Mood Mood: Depressed, Anxious - Affect Affect: Constricted - Speech Speech: Appropriate - Formal Thought Process Formal Thought Process: No Impairment - Suicidal Ideation Suicidal Ideation: No - Homicidal Ideation Homicidal Ideation: No Goal/Treatment Plan - Goal/Treatment Plan Need for Continued Stay: Discharge may exacerbated symptoms, Severe functional impairment Progress Toward Problem(s) and Goals/Treatment Plan: Taper with Methadone and librium Gabapentin for augmentation As needed medication All risks, benefits and alternatives of the meds discussed and the patient agreed and understood Attend groups and activities Supportive therapy and psychoeducation [place] for abstinence CBT for relapse prevention Encourage MAT Refer to rehab or IOP, and self-help groups Teach healthy lifestyle methods, i.e. diet, exercise, meditation Smoking cessation with [place] Nicotine patch if needed
[2018-09-13 15:41] VITALS: RESP 18
--- NOTE | 2018-09-14 08:48 | PCM.PYCHDC ---
Mental Status Examination - Mental Status Examination Orientation: Person Discharge Summary - Discharge Note Consultations:: List each consultation separately and include: 1. Reason for request. 2. Findings. 3. Follow-up Summary of Hospital Course include:: 1. Description of specific treatment plan utilized for patients during their course of treatmen. 2. Summarize the time- course for resolution of acute symptoms and/or regressed behaviors. 3. Describe issues identified and worked on during hospitalization. 4. Describe medication utilized. 5. Describe medical problems identified and treated. 6. Reassessment of suicide risk Summary of Hospital Course: Patient seen, chart reviewed, case discussed He is known from a previous admission Patient is a 33-year-old unemployed, , Middle-Eastern male who currently lives at home with his and 4-year-old child. The patient states that he has been using opiates for a long time, but was able to quit last year before relapsing this past February. Then in June he was detoxed again here. The patient states that he takes ten of the 30 mg oxycodone pills and 7-8 of the 2 mg tablets of Xanax per day. The patient denies cocaine, marijuana, and alcohol use. Patient admits to smoking 2 packs per day for 15 years. The patient has been to detox once in July 2017 and June 2018, but has never been to rehab. 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 He denies having seizures but he had confusion and withdrawal sxs from xanax. He minimizes his use again and says he recently escalated to such a high dose. tthe patient claims that her mother is in a hospital in [facility] in [facility] and likely dying and they will allegedly pull the plug on her after he visits her. He claims they will wait for him to come which will be next week. The patient denies any family history of drug use. The patient plans on moving back to [place] when he leaves from the hospital. Past Psych History: denies Past Medical History: 7 sinus surgeries Family Psych History: denies He went to [facility] bc of her allegedly dying mother - Diagnosis (1) Opioid use disorder, severe, dependence Current Visit: Yes Status: Acute (2) Sedative, hypnotic or anxiolytic use disorder, severe, dependence Current Visit: Yes Status: Acute - Final Diagnosis (DSM 5) Condition upon Discharge: STABLE Disposition: HOME/ ROUTINE Follow-up Treatment Plan: Taper with Methadone and librium Gabapentin for augmentation As needed medication All risks, benefits and alternatives of the meds discussed and the patient agreed and understood Attend groups and activities Supportive therapy and psychoeducation [place] for abstinence CBT for relapse prevention Encourage MAT Refer to rehab or IOP, and self-help groups Teach healthy lifestyle methods, i.e. diet, exercise, meditation Smoking cessation with [place] Nicotine patch if needed Prescriptions/Medication Reconciliation: Gabapentin [Neurontin] 300 mg PO TID #90 cap QUEtiapine [SEROquel] 50 mg PO HS #30 tab traZODone [Desyrel] 100 mg PO HS PRN #30 tab PRN Reason: Insomnia
[2018-09-14 09:05] VITALS: BP 136/88; PULSE 67; TEMP 97.5; O2SAT 99
== END 2018-09-14 09:10 | disposition home or self-care (01) | DRG 745 ==
LOC: C.ER 22:21 → C.7D 09-10 03:10
PROVIDERS: ADMIT Psychiatry & Neurology Psychiatry; ATTEND Psychiatry & Neurology Psychiatry
PROC: HZ2ZZZZ Detoxification Services for Substance Abuse Treatment (ICD-10-PCS; principal; 2018-09-10)
PROC: HZ59ZZZ Individual Psychotherapy for Substance Abuse Treatment, Supportive (ICD-10-PCS; 2018-09-10)
PROC: HZ46ZZZ Group Counseling for Substance Abuse Treatment, Psychoeducation (ICD-10-PCS; 2018-09-10)
PROC: GZ3ZZZZ Medication Management (ICD-10-PCS; 2018-09-10)
DX: F11.23 Opioid dependence with withdrawal (principal); F13.239 Sedative, hypnotic or anxiolytic dependence with withdrawal, unspecified; F32.9 Major depressive disorder, single episode, unspecified; F17.210 Nicotine dependence, cigarettes, uncomplicated; I10 Essential (primary) hypertension; Z56.0 Unemployment, unspecified